=== PATIENT | male | born 1970 | race Caucasian/White ===

== ENCOUNTER 2020-03-16 07:40 | Day surgery (SDC) | payer OTHER ==
[~2020-03-16] VITALS: Ht 175.3 cm; Wt 81.2 kg
[2020-03-16 08:23] VITALS: BP 155/89
[2020-03-16 08:30] VITALS: BP 155/89
[2020-03-16 11:45] VITALS: BP 147/93
== END 2020-03-16 11:50 | disposition home or self-care (01) ==
LOC: GI 07:40 → OR 10:00 → GI 10:00
PROVIDERS: ATTEND Internal Medicine Gastroenterology
DX: R13.10 Dysphagia, unspecified (principal); K25.9 Gastric ulcer, unspecified as acute or chronic, without hemorrhage or perforation; J45.909 Unspecified asthma, uncomplicated; I10 Essential (primary) hypertension; Z79.899 Other long term (current) drug therapy
CPT/HCPCS: 43235; C1769; J1200; J1610; J2250; J2310; J3010; J3490

== ENCOUNTER 2020-04-20 07:33 | Day surgery (SDC) | payer OTHER ==
[~2020-04-20] VITALS: Ht 175.3 cm; Wt 81.6 kg
[2020-04-20 09:13] VITALS: BP 157/107
[2020-04-20 17:16] VITALS: BP 125/78
== END 2020-04-20 15:55 | disposition home or self-care (01) ==
LOC: GI 07:33 → OR 07:33 → GI 15:55
PROVIDERS: ATTEND Internal Medicine Gastroenterology
DX: R19.5 Other fecal abnormalities (principal); K57.30 Diverticulosis of large intestine without perforation or abscess without bleeding; K64.1 Second degree hemorrhoids; K63.89 Other specified diseases of intestine
CPT/HCPCS: 45378; J1200; J1610; J2250; J2310; J3010; J3490